=== PATIENT | male | born 1995 | race Caucasian/White ===

== ENCOUNTER 2016-12-02 10:54 | Emergency (ER) | payer SELFPAY ==
[2016-12-02] MEDS ORDERED: XYLOCAINE 1%/ EPI 1:100,000 INFILTRATI ONE (11:41)
--- NOTE | 2016-12-02 11:41 | Emergency Department Report ---
Abscess Boil HPI - HPI Chief Complaint: Skin/Abscess/Foreign Body Stated Complaint: POSS SPIDER BITE Time Seen by Provider: 12/02/16 11:28 Duration: 2 Days Location: Other (left buttock/cheek) Severity: Mild History: Yes Pain, Yes Purulent Drainage, Yes Insect Bite, No Fever, No Numbness , No Foreign Body, No Previous History HPI: 21 year old male presents to ED with left buttock/cheek x2-3 days. patient states he was bitten by insect. patient is stable, neurologically intact and in no acute distress. Home Medications: Previous Rx's Medication Instructions Recorded Last Taken Type Sulfamethoxazole/Trimethoprim 1 each PO BID #20 tablet 12/02/16 Unknown Rx [Bactrim DS TAB] Allergies/Adverse Reactions: Allergies Allergy/AdvReac Type Severity Reaction Status Date / Time No Known Allergies Allergy Verified 12/02/16 12:20 ED Review of Systems ROS: Stated complaint: POSS SPIDER BITE Other details as noted in HPI Constitutional: denies: chills, fever Eyes: denies: eye pain, eye discharge, vision change ENT: denies: ear pain, throat pain Respiratory: denies: cough, shortness of breath, wheezing Cardiovascular: denies: chest pain, palpitations Endocrine: no symptoms reported Gastrointestinal: denies: abdominal pain, nausea, diarrhea Genitourinary: denies: urgency, dysuria Musculoskeletal: denies: back pain, joint swelling, arthralgia Skin: other (3cm abscess present on left buttock/cheek). denies: rash, lesions Neurological: denies: headache, weakness, paresthesias Psychiatric: denies: anxiety, depression Hematological/Lymphatic: denies: easy bleeding, easy bruising ED Past Medical Hx - Past Medical History Previous Medical History?: No - Surgical History Past Surgical History?: No - Social History Smoking Status: Current Every Day Smoker Substance Use Type: Alcohol, Non Opiate Pain - Medications Home Medications: Home Medications Medication Instructions Recorded Confirmed Last Taken Type Sulfamethoxazole/Trimethoprim 1 each PO BID #20 tablet 12/02/16 Unknown Rx [Bactrim DS TAB] ED Abscess Boil Physical Exam - Exam General: Vital signs noted. No distress. Alert and acting appropriately. Size: 3 cm Exam: Yes Tenderness, Yes Surrounding Cellulites/Erythema, Yes Normal Neurologic Exam, Yes Normal Circulation, No Heart Murmur I & D Note - I & D Note I & D Note: area prepped with betadine.5ccs of lido with epi utilized on abscess area for numbing. 1cm incision made and moderate amount of purulent drainage obtained. patient tolerated procedure well. packing applied and gauze covering applied prior to discharge. patient will return in 2-3 days for recheck. ED Course Vital Signs 12/02/16 11:00 Temperature 97.6 F Pulse Rate 73 Respiratory 18 Rate Blood Pressure 136/91 O2 Sat by Pulse 100 Oximetry Critical care attestation.: If time is entered above; I have spent that time in minutes in the direct care of this critically ill patient, excluding procedure time. ED Medical Decision Making - Medical Decision Making 21 year old male presents to ED with left buttock/cheek abscess. patient has tolerated I&D well and will be placed on PO antibiotics. patient understands to return in 2-3 days for recheck of abscess. ED Disposition Clinical Impression: Abscess Disposition: DISCHARGED TO HOME OR SELFCARE Is pt being admited?: No Does the pt Need Aspirin: No Condition: Stable Instructions: Abscess (ED) Additional Instructions: Please return to ED within 2-3 days for abscess recheck Prescriptions: Sulfamethoxazole/Trimethoprim [Bactrim DS TAB] 1 each PO BID #20 tablet Referrals: PRIMARY CARE, [Primary Care Provider] - 3-5 Days Forms: Work/School Release Form(ED)
[2016-12-02] MEDS ORDERED: NORCO 7.5/325 PO ONE (11:49)
[2016-12-02] MEDS ORDERED: POLYSPORIN TP ONE (12:19)
[2016-12-02] MEDS ORDERED: TRIPLE ANTIBIOTIC TP ONE (12:27)
[2016-12-02 12:47] VITALS: BP 123/79
== END 2016-12-02 12:44 | disposition home or self-care (01) ==
LOC: ED 10:54
DX: L02.31 Cutaneous abscess of buttock (principal); F17.200 Nicotine dependence, unspecified, uncomplicated
CPT/HCPCS: A6250